=== PATIENT | male | born 1985 | race African-American/Black ===

== ENCOUNTER 2023-08-13 10:04 | Emergency (ER) | payer OTHER, SELFPAY ==
--- NOTE | 2023-08-13 10:20 | ED.NECK ---
HPI - Neck Pain/Injury General Chief Complaint: Neck Pain/Injury Stated Complaint: neck pain Time Seen by Provider: 08/13/23 10:06 Source: patient Mode of arrival: ambulatory Limitations: no limitations History of Present Illness HPI Narrative: Adam is a 38-year-old male patient presenting to clinic today with complaints of neck pain x1 week. He reports that he has had no known injury. Denies any headache or pain radiating down his arms. Denies any visual changes. States that he has been taking ibuprofen which has been helping relieve his symptoms however he is continues to have pain with turning his head side to side. Related Data Allergies Allergy/AdvReac Type Severity Reaction Status Date / Time No Known Allergies Allergy Verified 08/13/23 10:26 Review of Systems Review of Systems: Pertinent positives per HPI. Patient denies any fever, chills, rash, headache, visual changes, dizziness, cough, runny nose, sore throat, shortness of breath, chest pain, palpitations, nausea, vomiting, diarrhea, constipation, abdominal pain, or any urinary issues. PMFSH Comments At the time of my signature, I reviewed and agree with the nursing past medical, surgical, social, and family history. There is no relevant family history pertinent to the patient complaint. Exam Narrative: General: Well-developed, well nourished, in no apparent distress Head: Normocephalic, atraumatic. Cardio: Regular rate and rhythm, s1 and s2 normal, no murmur appreciated. Resp: Clear to auscultation bilaterally, no rhonchi, rales, wheezing or rubs. Musculoskeletal: No deformity, tender to palpation over the posterior lateral cervical musculature, pain with turning his head to the left and right against resistance, no meningeal signs, bilateral hand [employer] strong and equal, limited range of motion with hyperextension and turning head left and right due to discomfort, muscle strength strong and equal, peripheral pulse strong, no edema, no cyanosis, normal gait and station Course Course Emergency Course: Portions of this record may have been created with voice recognition software. Vital Signs Vital signs: Vital Signs Temperature 36.2 C L 08/13/23 10:24 Pulse Rate 83 08/13/23 10:24 Respiratory Rate 20 08/13/23 10:24 Blood Pressure 155/100 H 08/13/23 10:24 Pulse Oximetry 100 08/13/23 10:24 Oxygen Delivery Room Air 08/13/23 10:24 Temperature 36.2 C L 08/13/23 10:24 Pulse Rate 83 08/13/23 10:24 Respiratory Rate 20 08/13/23 10:24 Blood Pressure 155/100 H 08/13/23 10:24 Pulse Oximetry 100 08/13/23 10:24 Oxygen Delivery Room Air 08/13/23 10:24 Vital signs reviewed MDM - Neck Pain/Injury MDM Narrative Medical decision making narrative: At the time of visit patient is resting comfortably on the exam table. Patient appears to be nontoxic. Plan: I suspect patient has a cervical posterior lateral muscle strain. Patient denies having any injury and does not have any meningitis signs. Prescription for Flexeril and ibuprofen was sent to the pharmacy. Work note was given for today. Sedation precautions were reviewed when taking Flexeril and patient voiced understanding. Supportive measures were discussed with the patient and they voiced understanding discharge instructions and agrees to treatment plan. Return precautions reviewed Differential Diagnosis Differential diagnosis: Likely disc disorder of cervical region, cervical radiculopathy, torticollis, cervical spondylosis and strain of neck muscle Discharge Plan Discharge Clinical Impression: Posterolateral cervical muscle strain Qualifiers: Encounter type: initial encounter Qualified Code(s): S16.1XXA - Strain of muscle, fascia and tendon at neck level, initial encounter Patient Disposition: Home, Self-Care Condition: Stable Instructions: Antibiotic Form, Cervical Strain (ED) Additional Instructions: Take any prescription medication only as p
[2023-08-13 10:24] VITALS: BP 155/100; PULSE 83; RESP 20; TEMP 36.2; O2SAT 100
== END 2023-08-13 11:07 | disposition home or self-care (01) ==
LOC: ANHED 10:47
PROVIDERS: Emergency Provider Nurse Practitioner Family
DX: S16.1XXA Strain of muscle, fascia and tendon at neck level, initial encounter (principal); X58.XXXA Exposure to other specified factors, initial encounter
CPT/HCPCS: 99283